=== PATIENT | male | born 1980 | race Caucasian/White ===

== ENCOUNTER 2025-03-08 00:01 | Day surgery (SDC) | payer OTHER, SELFPAY ==
[2025-02-23 10:20] VITALS: BMI 35.9
--- OUTSIDE RECORDS SUMMARY | 2025-03-08 00:04 | XMS_ITS | Patient Health Record ---
Author Organization [facility] Address [address] [place] [address] Support Name Relationship Address Phone Baldemar Vallejo Emergency Contact Unknown [phone] Mikel Vallejo Guarantor Unknown Unavailable Reason For Referral No Information Medications Medication SIG (Take, Route, Frequency, Duration) Notes Start Date End Date Status buPROPion HCl ER (XL) 150 MG Oral 01/13/2019 Active Levothyroxine Sodium 88 MCG TAKE 1 TABLET BY MOUTH DAILY Oral 02/14/2019 Active Montelukast Sodium 10 MG TAKE 1 TABLET B Y MOUTH EVERY EVENING Oral 07/28/2019 Active Conde Carbonate 300 MG Oral 01/04/2019 Active Rosuvastatin Calcium 10 MG 1 TAB(S) ORAL LY ONCE A DAY (AT BEDTIME) Oral 10/24/2019 Active Naltrexone HCl 50 MG Oral 01/13/2019 Active Rexulti 2 mg Oral 01/04/2019 Active Levothyroxine Sodium 100 MCG TAKE 1 TABLET BY MOUTH EVERY DAY Oral 11/21/2019 Active Testosterone Cypionate 200 MG/ML Intramuscular 01/10/2019 Active PARoxetine HCl ER 25 MG Oral 01/13/2019 Active Immunizations Vaccine Route Administration Date Status Comme nts Infuenza, trivalent, recombinant, preservative free IM Intramuscular 03/20/2011 Administered given by mvd Infuenza, trivalent, recombinant, preservative free IM Intramuscular 03/22/2012 Administered ab Infuenza, trivalent, recombinant, preservative free IM Intramuscular 03/24/2013 Administered cc Infuenza, trivalent, recombinant, preservative free IM Intramuscular 04/03/2015 Administered cc Infuenza, trivalent, recombinant, preservative free IM Intramuscular 2017 Administered Infuenza, trivalent, recombinant, preservative free Unknown 01/25/2019 Administered Problems Problem Type SNOMED Code ICD Code Onset Dates Problem Status W/U Status Risk Notes Problem Acquired hypothyroidism (161722259) Other specified acquired hypothyroidism (244.8) Active confirmed Problem Testicular hypofunction (030262277) Testicular hypofunction (E29.1) Active confirmed Problem Vitamin D deficiency (83163454) Vitamin D deficiency, unspecified (E55.9) Active confirmed Problem Bipolar disorder (99601253) Bipolar disorder, unspecified (F31.9) Active confirmed Problem Dysthymia (83591059) Dysthymic disorder (F34.1) Active confirmed Problem Attention deficit hyperactivity disorder, 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, predominantly inattentive type (F90.0) Active confirmed Problem Mild intermittent asthma (929513743) Mild intermittent asthma, uncomplicated (J45.20) Active confirmed Problem Pure hypercholesterolemia (614005121) Pure hypercholesterol emia, unspecified (E78.00) Active confirmed Problem Depression (253902534) Depressio n, unspecified (F32.A) Active confirmed Plan Of Treatment No Information Insurance Providers Payer Name Payer Address Payer Phone Subscriber Number Group Number Insured Name Patient Relationship to Insured Coverage Start Date Coverage End Date DO NOT USE [id number] Mikel Vallejo Self - patient is the insured 9 [facility] [employer] [address] [address] [place] [id number] Mikel Vallejo Self - patient is the insured 4 DO NOT USE [id number] Mikle Vallejo Self - patient is the insured 3 [employer] [address] [place] [address] [id number] Mikel Vallejo Self - patient is the insured 1 Medical (General) History Surgical History Surgery Date(Month/Year) Hernia Repair: at child [email or web address] triple her ros repair; 2012-07-14
--- OUTSIDE RECORDS SUMMARY | 2025-03-08 00:05 | XMS_ITS | Data Portability ---
Author Organization [place] [facility] [employer], Main Office Address [address] [place] [address] Assessment No assessment recorded. Plan of Treatment Reminders Order Date Submit Date Provider Last Modified By Organization Details Last Modified Time Details Appointments None recorded. Lab lipid panel, serum 2022 023 [facility], [address], [place], [address], 14:27:41 TSH, serum or plasma 2022 023 [facility], [address], [place], [address], 3 08:03:10 Referral None recorded. Procedures None recorded. Surgeries None recorded. Imaging None recorded. Medication Orders Medrol (Favian) 4 mg tablets in a dose pack 2022 023 [id number], [address], [place], [address], 3 15:38:41 Zithromax Z-Favian 250 mg tablet 2022 023 FLORES [id number] In [facility], [address], [place], [address], 11:29:01 Patient TargetsNo targets recorded. Patient Instructions Encounter Date Encounter Id Patient Instructions Last Modified By Organization Details Last Modified Time 02/19/2023 [id number] Fu in 4 mo for check up ADHD, asthma, lipid, allergies, thyroid [email or web address] Not available 02/19/2023 10:51:13 Reason for Referral None Reported. Results Created Date Observation Date Name Description Value Unit Range Abnormal Flag Note LastModifiedBy Organization Detail LastModifiedTime 08/30/19 21 08/30/2020 TSH, serum or plasm a TSH 7.87 mIU/L 0.40-4 .50 high Not Available [facility] [address], [place], [address], 08/30/2020 04:10:04 10/04/19 21 10/06/2020 testo stero ne, free + total , serum testosterone , total, MS 164 NG/dL 250-11 00 low Men with clini karissa signi fican t hypog onada l sympt oms and testo stero ne value s repea tedly in the range For addit ional infor matlary nnadya e refer to https ://ed ucati on.FanDistro. Inflection/f aq/FA Q165 (This link is being provi ded for infor matio nal/e ducat ional purpo ses only. ) (Note ) This test was devel oped and its americo tical perfo rmanc e mckenzie cteri stics have been deter mined by [employer] shaunna. It has not been clear ed or appro fei by the FDA. This assay has been valid ated pursu ant to the CLIA regul ation s and is used for clini roman purpo ses. Not Available [facility] [address] [address], [place], [address], 10/06/2020 13:16:04 10/04/1910/06/2020 testo stero ne, free + total , serum testosterone , free 31.2 pg/mL 35.0-1 55.0 low (Note ) This test was devel oped and its americo tical perfo rmanc e mckenzie cteri stics have been deter mined by [employer] shaunna. It has not been clear ed or appro fei by the FDA. This assay has been valid ated pursu ant to the CLIA regul ation s and is used for clini roman purpo ses. [facility] med fusio n [address] [facility] [address] [place] [address] [phone] Elijah iglesias MD Not Available [address], [address], 10/06/2020 13:16:04 10/04/19 21 10/04/2020 TSH, serum or plasm a TSH 2.98 mIU/L 0.40-4 .50 normal Not Available [address], [address], 10/04/2020 07:05:47 10/04/19 21 10/04/2020 hepat ic funct ion panel , serum protein, total 6.6 g/dL 6.1-8. 1 normal Not Available [address], [address], 10/04/2020 07:05:46 10/04/19 21 10/04/2020 hepat ic funct ion panel , serum albumin 4.5 g/dL 3.6-5. 1 normal Not Available [address], [address], 10/04/2020 07:05:46 10/04/19 21 10/04/2020 hepat ic funct ion panel , serum globulin 2.1 g/dL_ (calc ) 1.9-3. 7 normal Not Available [address], [address], 10/04/2020 07:05:46 10/04/19 21 10/04/2020 hepat ic funct ion panel , serum albumin/glob ulin ratio 2.1 (calc ) 1.0-2. 5 normal Not Available [address], [address], 10/04/2020 07:05:46 10/04/19 21 10/04/2020 hepat ic funct ion panel , serum bilirubin, total 0.9 mg/dL 0.2-1. 2 normal Not Available [address], [address], 10/04/2020 07:05:46 10/04/19 21 10/04/2020 hepat ic funct ion panel , serum bilirubin, direct 0.2 mg/dL < or = 0.2 normal Not Available [address], [address], 10/04/2020 07:05:46 10/04/19 21 10/04/2020 hepat ic funct ion panel , serum bilirubin, indirect 0.7 mg/dL _(roman c) 0.2-1. 2 normal Not Available [address], [address], 10/04/2020 07:05:46 10/04/19 21 10/04/2020 hepat ic funct ion panel , serum alkaline phosphatase 49 U/L 36-130 normal Not Available [facility] [address], [address], 10/04/2020 07:05:46 10/04/1910/04/2020 hepat ic funct ion panel , serum AST 21 U/L 10-40 normal Not Available [address], [address], 10/04/2020 07:05:46 10/04/19 21 10/04/2020 hepat ic funct ion panel , serum ALT 23 U/L 9-46 normal Not Available [address], [address], 10/04/2020 07:05:46 10/04/1910/04/2020 lipid panel , serum LDL-choleste rol 81 mg/dL _(roman c) normal Refer ence range : <100 Puja able range <100 mg/dL for prima ry preve ntion ; <70 mg/dL for patie nts with CHD or diabe tic patie nts with > or = 2 CHD risk facto rs. LDL-C is now calcu lated using the [facility] cherylmiracle heck, which is a valid ated novel kathie clifton than the Fried randall breezy ion in the estim ation of LDL-C . Yvette heck SS et al. LYLA. 2013; 310(1 9): 2061- 2068 (http ://ed ucati on.Qu estDi meebee. com/f aq/FA Q164) Not Available [facility] [address] [address] [place], [address], 10/04/2020 07:05:46 10/04/19 21 10/04/2020 lipid panel , serum cholesterol, total 153 mg/dL <200 normal Not Available [address] [address] [place], [address], 10/04/2020 07:05:46 10/04/19 21 10/04/2020 lipid panel , serum HDL cholesterol 51 mg/dL > or = 40 normal Not Available [facility] [address] [address] [place], [address], 10/04/2020 07:05:46 10/04/1910/04/2020 lipid panel , serum triglyceride s 117 mg/dL <150 normal Not Available [facility] [address] [address] [place], [address], 10/04/2020 07:05:46 10/04/1910/04/2020 lipid panel , serum chol/HDLC ratio 3.0 (calc ) <5.0 normal Not Available [facility] [address] [address] [place], [address], 10/04/2020 07:05:46 10/04/1910/04/2020 lipid panel , serum non HDL cholesterol 102 mg/dL _(roman c) <130 normal For patie nts with diabe kaye plus 1 major ASCVD risk facto r, treat ing to a non-H DL-C goal of <100 mg/dL (LDL- C of <70 mg/dL ) is consi dered a thera peuti c optio n. Not Available [facility] [address] [place] [address], [address], 10/04/2020 07:05:46 11/13/19 22 11/14/2021 HEMOG LOBIN A1C hemoglobin A1C 5.7 %_of_ total _HGB <5.7 high For someo ne witho ut known diabe kaye, a hemog lobin A1c value betwe en 5.7% and 6.4% is consi stent with predi abete s and shoul d be confi rmed with a follo w-up test. For someo ne with known diabe kaye, a value <7% indic ates that their diabe kaye is well contr olled . A1c targe ts shoul d be indiv idual ized based on durat ion of diabe kaye, age, comor bid condi tions , and other consi derat ions. This assay resul t is consi stent with an incre ased risk of diabe kaye. Curre ntly, no conse nsus exist s apple ding use of hemog lobin A1c for diagn osis of diabe kaye for child lillie. Not Available [facility] [address] [address] , [place], [address], 11/14/2021 13:56:51 11/13/19 22 11/14/2021 TSH TSH 5.24 mIU/L 0.40-4 .50 high Not Available [facility] [address] [place], [address], 11/14/2021 13:56:50 11/13/19 22 11/14/2021 INSUL IN insulin 16.9 uIU/m L normal Refer ence Range < or = 19.6 Risk: Optim al < or = 19.6 Moder ate NA High >19.6 Adult cardi ovasc ular event risk categ ory cut point s (opti mal, moder ate, high) are based on [facility] s popul ation data from 04/22 11. This insul in assay shows stron g cross -reac tivit y for some insul in analo gs (lisp ro, aspar t, and glarg ine) and much lower cross -reac tivit y with other s (dete paty, gluli sine) . Not Available [address] [address] [place], [address], 11/14/2021 13:56:49 11/13/19 22 11/14/2021 HEPAT ITIS B SURFA CE ANTIB KENDRA QL hepatitis B surface antibody ql non-re active non-re active normal Not Available [facility] [address], [address], 11/14/2021 13:56:49 11/13/19 22 11/14/2021 CBC (INCL UDES DIFF/ PLT) hematocrit 49.4 % 38.5-5 0.0 normal Not Available [address], [address], 11/14/2021 13:56:48 11/13/19 22 11/14/2021 CBC (INCL UDES DIFF/ PLT) white blood cell count 6.4 thous and/u L 3.8-10 .8 normal Not Available [address], [address], 11/14/2021 13:56:48 11/13/19 22 11/14/2021 CBC (INCL UDES DIFF/ PLT) red blood cell count 5.59 shashank on/uL 4.20-5 .80 normal Not Available [facility] [address] [address] [place], [address], 11/14/2021 13:56:48 11/13/19 22 11/14/2021 CBC (INCL UDES DIFF/ PLT) hemoglobin 16.3 g/dL 13.2-1 7.1 normal Not Available [facility] [address], [address], 11/14/2021 13:56:48 11/13/19 22 11/14/2021 CBC (INCL UDES DIFF/ PLT) MCV 88.4 fL 80.0-1 00.0 normal Not Available [address], [address], 11/14/2021 13:56:48 11/13/19 22 11/14/2021 CBC (INCL UDES DIFF/ PLT) MCH 29.2 pg 27.0-3 3.0 normal Not Available [address], [address], 11/14/2021 13:56:48 11/13/19 22 11/14/2021 CBC (INCL UDES DIFF/ PLT) MCHC 33.0 g/dL 32.0-3 6.0 normal Not Available [address], [address], 11/14/2021 13:56:48 11/13/19 22 11/14/2021 CBC (INCL UDES DIFF/ PLT) RDW 16.5 % 11.0-1 5.0 high Not Available [address], [address], 11/14/2021 13:56:48 11/13/19 22 11/14/2021 CBC (INCL UDES DIFF/ PLT) platelet count 214 thous and/u L 140-40 0 normal Not Available [address], [address], 11/14/2021 13:56:48 11/13/19 22 11/14/2021 CBC (INCL UDES DIFF/ PLT) MPV 11.6 fL 7.5-12 .5 normal Not Available [address], [address], 11/14/2021 13:56:48 11/13/19 22 11/14/2021 CBC (INCL UDES DIFF/ PLT) absolute neutrophils 3130 cells /uL 1500-7 800 normal Not Available [address], [address], 11/14/2021 13:56:48 11/13/19 22 11/14/2021 CBC (INCL UDES DIFF/ PLT) absolute lymphocytes 2573 cells /uL 850-39 00 normal Not Available [address], [address], 11/14/2021 13:56:48 11/13/19 22 11/14/2021 CBC (INCL UDES DIFF/ PLT) absolute monocytes 570 cells /uL 200-95 0 normal Not Available [address], [address], 11/14/2021 13:56:48 11/13/19 22 11/14/2021 CBC (INCL UDES DIFF/ PLT) absolute eosinophils 90 cells /uL 15-500 normal Not Available [address], [address], 11/14/2021 13:56:48 11/13/19 22 11/14/2021 CBC (INCL UDES DIFF/ PLT) absolute basophils 38 cells /uL 0-200 normal Not Available [address], [address], 11/14/2021 13:56:48 11/13/19 22 11/14/2021 CBC (INCL UDES DIFF/ PLT) neutrophils 48.9 % normal Not Available [address], [address], 11/14/2021 13:56:48 11/13/19 22 11/14/2021 CBC (INCL UDES DIFF/ PLT) lymphocytes 40.2 % normal Not Available [address], [address], 11/14/2021 13:56:48 11/13/19 22 11/14/2021 CBC (INCL UDES DIFF/ PLT) monocytes 8.9 % normal Not Available [address], [address], 11/14/2021 13:56:48 11/13/19 22 11/14/2021 CBC (INCL UDES DIFF/ PLT) eosinophils 1.4 % normal Not Available [address], [address], 11/14/2021 13:56:48 11/13/19 22 11/14/2021 CBC (INCL UDES DIFF/ PLT) basophils 0.6 % normal Not Available [address], [address], 11/14/2021 13:56:48 11/13/19 22 11/14/2021 HEPAT IC FUNCT ION PANEL protein, total 7.2 g/dL 6.1-8. 1 normal Not Available [address], [address], 11/14/2021 13:56:47 11/13/19 22 11/14/2021 HEPAT IC FUNCT ION PANEL albumin 4.5 g/dL 3.6-5. 1 normal Not Available [address], [address], 11/14/2021 13:56:47 11/13/19 22 11/14/2021 HEPAT IC FUNCT ION PANEL globulin 2.7 g/dL_ (calc ) 1.9-3. 7 normal Not Available [address], [address], 11/14/2021 13:56:47 11/13/19 22 11/14/2021 HEPAT IC FUNCT ION PANEL albumin/glob ulin ratio 1.7 (calc ) 1.0-2. 5 normal Not Available [address], [address], 11/14/2021 13:56:47 11/13/19 22 11/14/2021 HEPAT IC FUNCT ION PANEL bilirubin, total 1.1 mg/dL 0.2-1. 2 normal Not Available [address], [address], 11/14/2021 13:56:47 11/13/19 22 11/14/2021 HEPAT IC FUNCT ION PANEL bilirubin, direct 0.2 mg/dL < or = 0.2 normal Not Available [address] [address] [place], [address], 11/14/2021 13:56:47 11/13/19 22 11/14/2021 HEPAT IC FUNCT ION PANEL bilirubin, indirect 0.9 mg/dL _(roman c) 0.2-1. 2 normal Not Available [address] [address] [place], [address], 11/14/2021 13:56:47 11/13/19 22 11/14/2021 HEPAT IC FUNCT ION PANEL alkaline phosphatase 55 U/L 36-130 normal Not Available [facility] [address] [address] [place], [address], 11/14/2021 13:56:47 11/13/19 22 11/14/2021 HEPAT IC FUNCT ION PANEL AST 25 U/L 10-40 normal Not Available [address] [address] [place], [address], 11/14/2021 13:56:47 11/13/19 22 11/14/2021 HEPAT IC FUNCT ION PANEL ALT 35 U/L 9-46 normal Not Available [address] [address] [place], [address], 11/14/2021 13:56:47 11/13/19 22 11/14/2021 BASIC METAB OLIC PANEL urea nitrogen (BUN) 21 mg/dL 7-25 normal Not Available [address], [address], 11/14/2021 13:56:47 11/13/19 22 11/14/2021 BASIC METAB OLIC PANEL glucose 98 mg/dL 65-99 normal Fasti ng refer ence inter shannon Not Available [address], [address], 11/14/2021 13:56:47 11/13/19 22 11/14/2021 BASIC METAB OLIC PANEL creatinine 0.89 mg/dL 0.60-1 .29 normal Not Available [address], [address], 11/14/2021 13:56:47 11/13/19 22 11/14/2021 BASIC METAB OLIC PANEL eGFR 110 mL/mi n/1.7 3m2 > or = 60 normal The eGFR is based on the CKD-E PI 2020 equat ion. To calcu late the new eGFR from a previ ous Creat inine or Cysta tin C resul t, go to https ://mariel khan.teressa carvajal.o kody/munir pearson s/ kdoqi /gfr% 5Fcal culat or Not Available [address], [address], 11/14/2021 13:56:47 11/13/19 22 11/14/2021 BASIC METAB OLIC PANEL BUN/creatini ne ratio not applic able (calc ) 6-22 Not Available [address], [address], 11/14/2021 13:56:47 11/13/19 22 11/14/2021 BASIC METAB OLIC PANEL sodium 142 mmol/ L 135-14 6 normal Not Available [address], [address], 11/14/2021 13:56:47 11/13/19 22 11/14/2021 BASIC METAB OLIC PANEL potassium 5.1 mmol/ L 3.5-5. 3 normal Not Available [address] [place], [address], 11/14/2021 13:56:47 11/13/19 22 11/14/2021 BASIC METAB OLIC PANEL chloride 106 mmol/ L 98-110 normal Not Available [facility] [address] [address] [address] , [place], [address], 11/14/2021 13:56:47 11/13/19 22 11/14/2021 BASIC METAB OLIC PANEL carbon dioxide 28 mmol/ L 20-32 normal Not Available [facility] [address] [address] [address] , [place], [address], 11/14/2021 13:56:47 11/13/19 22 11/14/2021 BASIC METAB OLIC PANEL calcium 9.6 mg/dL 8.6-10 .3 normal Not Available [facility] [address] [address] [facility] [place], [address], 11/14/2021 13:56:47 11/13/19 22 11/14/2021 HIV 1/2 ANTIG EN/AN TIBOD Y,FOU RTH GENER ATION W/RFL HIV Ag/Ab, 4TH gen non-re active non-re active normal HIV-1 antig en and HIV-1 /HIV- 2 antib odies were not detec eli. There is no labor atory evide nce of HIV infec tion. PLEAS E NOTE: This infor matio n has been discl osed to you from recor ds whose confi denti ality may be prote cted by state law. If your state requi res such prote ction , then the state law prohi bits you from kyra torre furth er discl osure of the infor matio n witho ut the speci fic writt en conse nt of the perso n to whom it perta ins, or as other tolentino permi tted by law. A gener al autho rizat ion for the relea se of medic al or other infor matio n is NOT suffi cient for this purpo se. For addit ional infor matio n pleas e refer to http: //[facility] catio n.que stdia gnost ics.c om/fa q/FAQ 106 (This link is being provi ded for infor jeb nal/ educa lauren l purpo ses only. ) The perfo rmanc e of this assay has not been clini karissa valid ated in patie nts less than 2 years old. Not Available [facility] [address], [address], 11/14/2021 13:56:46 11/13/19 22 11/14/2021 LIPID PANEL , STAND SHAWNA cholesterol, total 207 mg/dL <200 high Not Available [facility] [address], [address], 11/14/2021 13:56:45 11/13/19 22 11/14/2021 LIPID PANEL , STAND SHAWNA HDL cholesterol 50 mg/dL > or = 40 normal Not Available [facility] [address], [address], 11/14/2021 13:56:45 11/13/19 22 11/14/2021 LIPID PANEL , STAND SHAWNA triglyceride s 150 mg/dL <150 high Not Available [facility] [address], [address], 11/14/2021 13:56:45 11/13/19 22 11/14/2021 LIPID PANEL , [place]AND [place] LDL-choleste rol 131 mg/dL _(roman c) high Refer ence range : <100 Puja able range <100 mg/dL for prima ry preve ntion ; <70 mg/dL for patie nts with CHD or diabe tic patie nts with > or = 2 CHD risk facto rs. LDL-C is now calcu lated using the Yvette n-Hop kins calcu meggan n, which is a valid ated novel metho d provi kaelyn quispe r accur acy than the Fried randall equat ion in the estim ation of LDL-C . Yvette heck SS et al. LYLA. 2013; 310(1 9): 2061- 2068 (http ://ed ucati on.Qu estDi agnos [employer]. com/f aq/FA Q164) Not Available [facility] [address] [address], [place], [address], 11/14/2021 13:56:45 11/13/19 22 11/14/2021 LIPID PANEL , STAND [place]AWNA chol/HDLC ratio 4.1 (calc ) <5.0 normal Not Available [facility] [address] [address], [place], [address], 11/14/2021 13:56:45 11/13/19 22 11/14/2021 LIPID PANEL , STAND [place]AWNA non HDL cholesterol 157 mg/dL _(roman c) <130 high For patie nts with diabe kaye plus 1 major ASCVD risk facto r, treat ing to a non-H DL-C goal of <100 mg/dL (LDL- C of <70 mg/dL ) is consi enuice a woodya marjorie agarwalo n. Not Available [facility] [address] [address], [place], [address], 11/14/2021 13:56:45 Result Notes None recorded. Problems Name Problem SNOMED Code Status Onset Date Resolution Date Notes Provider Name and Address Organization Details Recorded Time Hypercholeste rolemia 65058491 Active 2020 Not Available [facility] 3 02:52:29 Asthma 091669959 Active 2020 Not Available [facility] 3 02:52:29 Mixed anxiety and depressive disorder 886371006 Active 2020 Not Available [facility] 3 02:52:29 Attention deficit hyperactivity disorder 331814297 Active 2020 Not Available [facility] 3 02:52:29 Hypothyroidis m 99845448 Active 2020 Not Available [facility] 3 02:52:29 Hyperlipidemi a 25704931 Active 2020 Not Available [facility] 3 02:52:29 Hypogonadism 78861130 Active 08/09/ 2021 Not Available [facility] 3 02:52:29 Obese 074944791 Active 2022 Aurora Anand NP [address] [facility], [address] [address], [place], [address] , [employer] [facility] [employer] [facility] 3 10:02:21 Anxiety 07945300 Active 2022 Aurora Anand NP [address] [facility], [address] [address], [place], [address] , [employer] [facility] 3 10:46:15 Seasonal allergic rhinitis 510452420 Active 2022 Aurora Anand NP [address] [facility], [address] [place] [address], [place], [address] , [email or web address] [facility] 3 10:46:30 Acute sinusitis 57515572 Active 2022 Aurora Anand NP [address] [facility], [address] [address], [place], [address] , [email or web address] [facility] 3 11:20:38 Problem Notes None recorded. Medical Equipment None Reported. Allergies Allergen ID Allergen Name Allergen Category Reaction Reaction Severity Criticality Documentation Date Start Date Code Code System Note Provider Name and Address Organization Details Recorded Time 5024 Cipro medicatio n itching Not available Not available 07/02/202239235 3 RxNorm Not Available [facility] 3 03:06:06 Medications Name Sig Start Date Stop Date Status Note LastModified by Organization Details LastModified Time atorvastati n 10 mg tablet TAKE 1 TABLET DAILY AT BEDTIME active Not Available Not Available No t Available azithromyci n 250 mg tablet TAKE 2 TABLETS (500 MG) BY ORAL ROUTE ONCE DAILY FOR 1 DAY THEN 1 TABLET (250 MG) BY ORAL ROUTE ONCE DAILY FOR 4 DAYS active Not Available Not Available No t Available Synthroid 125 mcg tablet TAKE 1 TABLET DAILY (DISCONTI NUE PREVIOUS DOSE) active Not Available Not Available No t Available dextroamphe tamine-amph etamine 10 mg tablet TAKE 1 TABLET BY MOUTH EARLY AFTERNOON DAILY NEEDED active Not Available Not Available No t Available Adderall XR 20 mg capsule,ext ended release Take 1 capsule every day by oral route. 07/16 completed Not Available Not Available Not Available levothyroxi ne 25 mcg tablet TAKE 1 TABLET BY MOUTH EVERY DAY active Not Available Not Available No t Available levothyroxi ne 100 mcg tablet Take 1 tablet every day by oral route. 11/28 completed Not Available Not Available Not Available lithium carbonate 300 mg capsule 1 CAP(S) ORALLY ONCE A DAY (IN THE MORNING), 3 CAP(S) ORALLY ONCE A DAY (AT BEDTIME) 07/26 completed Not Available Not Available Not Available levothyroxi ne 50 mcg tablet TAKE 1 TABLET BY MOUTH EVERY DAY 11/14 completed Not Available Not Available Not Available dextroamphe tamine-amph etamine 20 mg tablet Take 1 tablet every day by oral route. active Not Available Not Available No t Available Advair Diskus 250 mcg-50 mcg/dose powder for inhalation Inhale 1 puff twice a day by inhalatio n route. active Not Available Not Available No t Available Synthroid 75 mcg tablet Take 1 tablet(s) every day by oral route for 90 days. 06/23 completed Not Available Not Available Not Available sertraline 25 mg tablet Take 1 tablet every day by oral route for 30 days. 10/02 completed Not Available Not Available Not Available montelukast 10 mg tablet TAKE 1 TABLET DAILY AT BEDTIME active Not Available Not Available No t Available Synthroid 112 mcg tablet Take 1 tablet every day by oral route. active Not Available Not Available No t Available methylpredn isolone 4 mg tablets in a dose pack 1 tab po daily active Not Available Not Available No t Available albuterol sulfate HFA 90 mcg/actuati on aerosol inhaler INHALE 2 PUFFS BY MOUTH EVERY 4 HOURS NEEDED active Not Available Not Available No t Available Vitamin D2 1,250 mcg (50,000 unit) capsule TAKE 1 CAPSULE (50,000 UNIT) BY ORAL ROUTE ONCE WEEKLY FOR 90 DAYS 07/26 completed Not Available Not Available Not Available ondansetron 4 mg disintegrat ing tablet TAKE 1 TABLET BY MOUTH EVERY 6 HOURS NEEDED active Not Available Not Available No t Available sertraline 50 mg tablet TAKE 1 TABLET DAILY active Not Available Not Available No t Available rosuvastati n 10 mg tablet 1 TAB(S) ORALLY ONCE A DAY (AT BEDTIME) 07/26 completed Not Available Not Available Not Available levalbutero l HFA 45 mcg/actuati on aerosol inhaler active Not Available Not Available Not Available Vyvanse 20 mg capsule Take 1 capsule every day by oral route. 11/04 completed Not Available Not Available Not Available levothyroxi ne 50 mcg capsule Take 1 po daily 11/12 completed Not Available Not Available Not Available Saxenda 3 mg/0.5 mL (18 mg/3 mL) subcutaneou s pen injector 10/10 completed Not Available Not Available Not Available Rexulti 2 mg tablet 07/26 completed Not Available Not Available Not Available Descovy 200 mg-25 mg tablet TAKE 1 TABLET BY MOUTH EVERY DAY FOR 30 DAYS active Not Available Not Available No t Available Xyosted 100 mg/0.5 mL subcutaneou s auto-inject or INJECT 100 MG SUBCUTANE OUSLY ONCE A WEEK 06/20 completed Not Available Not Available Not Available albuterol sulf 90 mcg/actuati on breath activated powder inhaler,sen sor 11/12 completed Not Available Not Available Not Available Wegovy 2.4 mg/0.75 mL subcutaneou s pen injector Inject 2.4 mg every week by subcutane ous route for 90 days. active Not Available Not Available No t Available Wegovy 1.7 mg/0.75 mL subcutaneou s pen injector Inject 1.7 mg every week by subcutane ous route. 11/04 completed Not Available Not Available Not Available Wegovy 1 mg/0.5 mL subcutaneou s pen injector Inject 1 mg every week by subcutane ous route. 11/04 completed Not Available Not Available Not Available Wegovy 0.25 mg/0.5 mL subcutaneou s pen injector Inject by subcutane ous route for 28 days. 07/16 completed Not Available Not Available Not Available Wegovy 0.5 mg/0.5 mL subcutaneou s pen injector Inject by subcutane ous route for 28 days. active Not Available Not Available No t Available sertraline 200 mg capsule 07/12 /2022 completed Not Available Not Available Not Available Vitals Date Recorded Body mass index (BMI) Body height Oxygen saturation Oxygen saturation in Arterial blood by Pulse oximetry Heart rate Respiratory rate Body temperature Body weight Systolic And Diastolic Provider Name and Address Organization Details Last Updated DateTime 3 38.5 kg/m2 177.8 cm 93 % 93 % 88 /min 16 /min 96.7 [degF] 613978. 76 g 132/81 mm[Hg] Not Available [facility] 3 02:48:24 Date Recorded Oxygen saturation Oxygen saturation in Arterial blood by Pulse oximetry Heart rate Body temperature Body weight Systolic And Diastolic Provider Name and Address Organization Details Last Updated DateTime 1 97 % 97 % 61 /min 97.5 [degF] 701065. 46 g 120/78 mm[Hg] Not Available [facility] 3 02:48:24 Date Recorded Oxygen saturation Oxygen saturation in Arterial blood by Pulse oximetry Heart rate Body temperature Body weight Systolic And Diastolic Provider Name and Address Organization Details Last Updated DateTime 1 96 % 96 % 78 /min 97.6 [degF] 558536. 09 g 124/78 mm[Hg] Not Available [facility] 3 02:48:24 Date Recorded Oxygen saturation Oxygen saturation in Arterial blood by Pulse oximetry Heart rate Body temperature Body weight Systolic And Diastolic Provider Name and Address Organization Details Last Updated DateTime 2 98 % 98 % 100 /min 96.9 [degF] 700990. 75 g 130/90 mm[Hg] Not Available [facility] 3 02:48:24 Date Recorded Body height Body mass index (BMI) Body weight Body temperature Heart rate Respiratory rate Oxygen saturation Oxygen saturation in Arterial blood by Pulse oximetry Pain severity - 0-10 verbal numeric rating [Score] - Reported Systolic And Diastolic Provider Name and Address Organization Details Last Updated DateTime 3 177.8 cm 34.7 kg/m2 376854. 05 g 96.8 [degF] 61 /min 16 /min 96 % 96 % 0 100/70 mm[Hg] Aurora Leos RN [place] - [facility] 3 11:15:06 Social History Question Answer Notes LastModified by Organizat ion Details LastModified Time Tobacco Smoking Status Never Smoker Not Available [facility] 07/02/2022 02:35:50 Do You Have An Advance Directive? Yes [id number] Information not available 07/02/2022 What Is Your Level Of Caffeine Consumption? Occasional [id number] [id number] Information not available 07/02/2022 What Is Your Code Status? Full Code [id number] Information not available 07/02/2022 In The 14 Days Before Symptom Onset, Have You Had Close Contact With A Laboratory-confi rmed COVID-19 While That Case Was Ill? No [id number].[id number] Information not available 07/02/2022 In The 14 Days Before Symptom Onset, Have You Had Close Contact With A Person Who Is Under Investigation For COVID-19 While That Person Was Ill? No [id number].31164 [id number] Information not available 07/02/2022 What Type Of Diet Are You Following? REGULAR MIGRATION.21249 49205 Information not available 07/02/2022 What Is The Highest Grade Or Level Of School You Have Completed Or The Highest Degree You Have Received? [id number] MIGRATION.70043 43319 Information not available 07/02/2022 How Many Days Of Moderate To Strenuous Exercise, Like A Brisk Walk, Did You Do In The Last 7 Days? 2 Information not available 02/19/2023 On Those Days That You Engage In Moderate To Strenuous Exercise, How Many Minutes, On Average, Do You Exercise? 60 Information not available 02/19/2023 Have There Been Any Changes To Your Family Or Social Situation? No Information not available 02/19/2023 Are There Any Guns Present In Your Home? Yes [id number].98142 [id number] Information not available 07/02/2022 Where Do You Live? [facility] MIGRATION.[id number] Information not available 07/02/2022 Do You Have A Medical Power Of Bottoming Machine Operator? Yes [id number].47965 44775 Information not available 07/02/2022 How Many Children Do You Have? 0 MIGRATION.92440 58575 Information not available 07/02/2022 Do You Have Any Pets? Yes MIGRATION.17886 14042 Information not available 07/02/2022 What Is Your Relationship Status? MIGRATION.71709 32313 Information not available 07/02/2022 Do You Use Your Seat Belt Or Car Seat Routinely? Yes Information not available 02/19/2023 Do You Have Smoke And Carbon Monoxide Detectors In Your Home? Yes [id number].47338 94105 Information not available 07/02/2022 Are There Any Smokers In Your House? No MIGRATION.64795 97888 Information not available 07/02/2022 Do You Participate In Social Media? Yes Information not available 02/19/2023 What Types Of Sporting Activities Do You Participate In? Weight Lifting , Cardio Information not available 02/19/2023 Do You Use Sunscreen Routinely? Yes MIGRATION.68286 03141 Information not available 07/02/2022 Have You Recently Traveled Abroad? No MIGRATION.03030 04304 Information not available 07/02/2022 Do You Have Any Dietary Restrictions? No MIGRATION.56772 32425 Information not available 07/02/2022 Sex: Unknown Functional Status Question Answer Note LastModified by Organizat ion Details LastModified Time Do you use any illicit or recreational drugs? No [id number] Information not available 07/02/2022 What is your level of alcohol consumption? 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 Occasional [id number].[id number] 026 Information not available 07/02/2022 Mental Status Question Answer Note LastModified by Organization D etails LastModified Time Do you feel stressed (tense, restless, nervous, or anxious, or unable to sleep at night)? [id number] Information not available 02/19/2023 Family History Relationship Description Onset Age of this Age Resolved Age Notes LastModified by Organization Details LastModified Time Father No current problems or disability [id number] Not available 07/02/2022 02:40:16 Mother No current problems or disability [id number] Not available 07/02/2022 02:40:16 Mother Malignant neoplasm of breast [id number].230 [id number] Not available 07/02/2022 02:40:16 Maternal Grandmother Malignant neoplasm of colon MIGRATION.599 [id number] Not available 07/02/2022 02:40:16 Medical History Condition Response ADD/ADHD Y ANXIETY DISORDER Y DEPRESSION (INCLUDING POST ) Y HYPOTHYROIDISM Y HIGH CHOLESTEROL / HYPERLIPIDEMIA Y Immunizations Vaccine Type Date Status Note Provider Nam e and Address Organization Details Recorded Time SARS-COV-2 (COVID-19) vaccine, UNSPECIFIED 3 completed Aurora Anand NP [address], [place], [address], [place] - [employer] 02/19/2023 11:19:38 influenza nasal, unspecified formulation 3 completed Aurora Anand NP [address], [place], [address], [employer] - [employer] 02/19/2023 11:19:46 COVID-19, mRNA, LNP-S, PF, 100 mcg/0.5mL dose or 50 mcg/0.25mL dose 1 completed Not Available [facility] 07/02/2022 03:05:46 COVID-19, mRNA, LNP-S, PF, 100 mcg/0.5mL dose or 50 mcg/0.25mL dose 1 completed Not Available [facility] 07/02/2022 03:05:46 Past Encounters Encounter ID Performer Location Encounter Start Date Encounter Closed Date Diagnosis/Indication Diagnosis SNOMED-CT Code Diagnosis ICD10 Code Diagnosis IMO Codes Diagnosis Note [id number] [facility] [address] [place] [address] 07/26/2020 00:00:00 07/26/2020 21:28:49 [id number] [facility] [address] [place] [address] 08/28/2020 00:00:00 08/28/2020 16:58:37 [id number] [facility] [address] [place] [address] 10/02/2020 00:00:00 10/02/2020 15:50:03 [id number] Eduardo Smith MD [facility] [address] [place] [address] 11/12/2021 00:00:00 11/12/2021 10:07:18 [id number] José Miguel Mcdermott MD [address] [address] 06/20/2022 00:00:00 06/23/2022 11:16:21 [id number] Aurora Anand NP [address] [address] 02/19/2023 11:06:36 02/19/2023 12:54:32 Attention deficit hyperactivity disorder 320549093 F90.9 Adderall out of stock, change to vyvanse 20 mg po daily. 08/05/22 adderall 10 mg po daily sent. 3 pt called asking for vyvanse 20 mg po daily o [facility].11/04/22 vyvanse too expensive, ER form out of stock. Adderall IR 20 mg sent to [facility] in [facility]. 3 pt scheduled appt in 1 week. Refilled 20 mg and will add 10 mg for prn use. Asthma 225146577 J45.90 9 Advair 250/50 inh bid. Rinse mouth after use.Levalb uterol HFA 45 mcg/actuat ion Hyperlipidemia 74047046 E78.5 Atorvastat in 10 mg po nightly. Hypogonadism 88871499 E2 9.1 Hypothyroidism 30153897 E03.9 Levothyrox ine 112 mcg po daily. HIV risk lifestyle 74431 4005 Z72.89 Descovy 200mg-25 mg po daily. Obese 957199137 E66.9 wegovy 1 mg sent 08/05/22 with 1.7 mg dose. 3 Wegovy 2.4 mg dose [facility] 1 [facility] Anxiety 43571102 F41.9 Sertraline 50 mg po daily. Seasonal a llergic rhinitis 564868710 J30.2 Montelukas t 10 mg po daily. Acute sinusitis 15185837 J01.90 Medrol dose favian. Zpak. Health Concerns Section Related Observation LastModified by Organization Detai ls LastModified Time None Recorded Concern Status LastModified by Organization Details LastModified Time None Recorded Advance Directives Directive Y: Payers Insurance Date Sequence Insurance Name Policy Number Policy [place] Covered Member ID [place] Member ID Guarantor Name 02/16/2023 1 [facility] [id number] Mikel Vallejo [id number] Mikel Vallejo Notes Date Note Type Note Provider Name and Address Organization Details Recorded Time 02/19/2023 text/html Here for follow up 8 mo.First and only visit was 06/20/22. Lipid- trying to eat wellAsthma- using inhaler 2 times weekly. Has been on maintenence inhaler.ADHD- stable. Would like Adderall ER but can't find it. Vyvanse did not work, but aware it could've been the dose.Hypothyroidis m- Taking meds routinely.HIV risk lifestyle- Homosexual relationship.Obese - wegovy working well. Still on insurance coverage.Anxiety- Stable. flares on occasion. Situational.Allerg ic rhinitis- Stable. Has been back and forth to [place]. Has been wheezing more than normal. Using disc routinely. Aurora Anand NP [address] [facility] [facility] [address], [place], [address], [place] - [facility] [facility] [employer] 02/19/2023 12:42:28
[2025-03-08 06:16] VITALS: BMI 37.6
[2025-03-08 06:19] VITALS: BP 117/58; PULSE 66; RESP 18; TEMP 36.4; O2SAT 98
[2025-03-08] MEDS: LACTATED RINGERS 1,000 ML 150 ML IV CONT (06:20)
--- NOTE | 2025-03-08 06:48 | P.PNAN_ITS ---
Anes - Initial Pre Proc Eval Procedure: Operation Date: 03/08/25 07:30 Proposed Procedures p Screening Colonoscopy - Satish Thompson MD Date/Time: 03/08/25 06:48 Surgeon: Satish Thompson MD Pre Op Diagnosis: Screening Patient Data Age: 44 Gender: M Height: 1.78 m Weight: 119.1 kg Last Vital Signs Temp 36.4 C L 03/08/25 06:19 Pulse 66 03/08/25 06:19 Resp 18 03/08/25 06:19 BP 117/58 L 03/08/25 06:19 Pulse Ox 98 03/08/25 06:19 O2 Del Method Room Air 03/08/25 06:19 Allergies Allergy/AdvReac Type Severity Reaction Status Date / Time ciprofloxacin (From Cipro) AdvReac Mild Unknown Verified 03/08/25 06:13 Home Medications ?Medication ?Instructions ?Recorded ?Confirmed ?Type albuterol 90 mcg-budesonide 80 2 inh inhalation ONCE # 32.1 grams 05/05/24 02/23/25 Rx mcg/actuation HFA aerosol inhaler (Airsupra) montelukast 10 mg tablet 10 mg PO DAILY #90 tabs 06/2803/08/25 Rx atorvastatin 10 mg tablet 10 mg PO DAILY #90 tabs /03/08/25 Rx emtricitabine 200 mg-tenofovir 1 tablet PO DAILY #90 t abs 08/31/24 03/08/25 Rx alafenamide fumarate 25 mg tablet (Descovy) levothyroxine 125 mcg tablet 125 mcg PO DAILY #90 tabs 11/15/24 03/08/25 Rx (Synthroid) sertraline 50 mg tablet 50 mg PO DAILY #90 tabs 10/2603/08/25 Rx dextroamphetamine-amphetamine 10 10 mg PO DAILY #30 ta bs 02/21/25 03/08/25 Rx mg tablet (Adderall) dextroamphetamine-amphetamine ER 20 mg PO DAILY #30 ca ps 02/21/25 03/08/25 Rx 20 mg 24hr capsule,extend release (Adderall XR) semaglutide (weight loss) 2.4 2.4 mg (0.75 mL) subcut WEEKLY #6 02/21/25 03/08/25 Rx mg/0.75 mL subcutaneous pen mL injector (Nando) Patient hx anesthesia problems: none Family hx anesthesia problems: none Results Review: All pre-operative results and documents have been reviewed as part of the pre- operative evaluation. [facility] Past Medical History Medical History (Updated 06/09/24 @ 12:55 by Aurora Anand APRN) Hypothyroidism Asthma Anxiety Allergies COPD (chronic obstructive pulmonary disease) Surgical History Surgical History (Updated 10/06/23 @ 08:[address] [facility]) No history of previous surgery Family History Family History (Updated 10/06/23 @ 09:02 by Fara Palacio CMA) Mother Asthma Depression Thyroid disorder Breast cancer Grandparent Depression Carcinoma of colon Social History Social History (Updated 08/30/24 @ 13:59 by Virgil Taylor) Social History: 08/24/24 very confident with medical forms Smoking status: Never smoker Alcohol intake: unknown Substance use: never Substance use type: does not use Do You Feel Safe in your Home?: Yes Lack of Transportation: No Lack of Food: Never True Current Housing: I Have Housing Concerned About Future Housing: No Difficulty Paying Gas/Electric Bills: No Difficulty Paying for Meds: No Currently Unemployed: No Education: Associate Degree Difficulty w/ Childcare or Family Care: No Living arrangements: alone Occupation/Education: occupation Additional occupation/education comments: Progress Worker at [employer] concerns: No Agree to blood products: Yes Anes - Eval Final PreProcedure Day of Procedure 03/08/25 06:48 Patient weight: obese Heart: regular rate and rhythm Lungs: clear to auscultation Airway: Mallampati scale class II Neurological: alert and oriented Last oral intake: >/= 8 hours ASA classification: III Emergent: no Anesthetic plan: proceed Anesthesia type and monitoring: general GIVS and standard monitoring Results Review: All pre-operative results and documents have been reviewed as part of the pre- operative evaluation. Informed Consent: The patient's anesthetic plan and its attendant risks and benefits were discussed with the patient/family/POA. Questions were solicited and answers provided to the satisfaction of the patient/family/POA.
--- NOTE | 2025-03-08 07:29 | PM.IMHP ---
H&P: HPI History of Present Illness Date/Time: 03/08/25 07:29 Chief Complaint: Screening colonoscopy Narrative: This is the patient's first colonoscopy. There are no GI symptoms and there is no family history of colorectal cancer. Review of Systems Review of Systems: All systems reviewed & are unremarkable except as noted in HPI and below PMFSH Past Medical History Medical History (Updated 03/08/25 @ 07:30 by Satish Thompson MD) Hypothyroidism Asthma Anxiety Allergies COPD (chronic obstructive pulmonary disease) Surgical History Surgical History (Updated 10/06/23 @ 08:48 by Fara Palacio CMA) No history of previous surgery Family History Family History (Updated 10/06/23 @ 09:02 by Fara Palacio CMA) Mother Asthma Depression Thyroid disorder Breast cancer Grandparent Depression Carcinoma of colon Social History Social History (Updated 08/30/24 @ 13:59 by Virgil Taylor) Social History: 08/24/24 very confident with medical forms Smoking status: Never smoker Alcohol intake: unknown Substance use: never Substance use type: does not use Do You Feel Safe in your Home?: Yes Lack of Transportation: No Lack of Food: Never True Current Housing: I Have Housing Concerned About Future Housing: No Difficulty Paying Gas/Electric Bills: No Difficulty Paying for Meds: No Currently Unemployed: No Education: Associate Degree Difficulty w/ Childcare or Family Care: No Living arrangements: alone Occupation/Education: occupation Additional occupation/education comments: Branch Assistant at [employer] concerns: No Agree to blood products: Yes Meds Home Medications and Allergies Home Medications ?Medication ?Instructions ?Recorded ?Confirmed ?Type albuterol 90 mcg-budesonide 80 2 inh inhalation ONCE #32.1 grams 05/05/24 02/23/25 Rx mcg/actuation HFA aerosol inhaler (Airsupra) montelukast 10 mg tablet 10 mg PO DAILY #90 tabs 05/05/24 03/08/25 Rx atorvastatin 10 mg tablet 10 mg PO DAILY #90 tabs 08/31/24 03/08/25 Rx emtricitabine 200 mg-tenofovir 1 tablet PO DAILY #90 tabs 08/31/24 03/08/25 Rx alafenamide fumarate 25 mg tablet (Descovy) levothyroxine 125 mcg tablet 125 mcg PO DAILY #90 tabs 11/15/24 03/08/25 Rx (Synthroid) sertraline 50 mg tablet 50 mg PO DAILY #90 tabs 12/07/24 03/08/25 Rx dextroamphetamine-amphetamine 10 10 mg PO DAILY #30 tabs 02/21/25 03/08/25 Rx mg tablet (Adderall) dextroamphetamine-amphetamine ER 20 mg PO DAILY #30 caps 02/21/25 03/08/25 Rx 20 mg 24hr capsule,extend release (Adderall XR) semaglutide (weight loss) 2.4 2.4 mg (0.75 mL) subcut WEEKLY #6 02/21/25 03/08/25 Rx mg/0.75 mL subcutaneous pen mL injector ([employer]) Allergies Allergy/AdvReac Type Severity Reaction Status Date / Time ciprofloxacin (From Cipro) AdvReac Mild Unknown Verified 03/08/25 06:13 Vital Signs Vital Signs - 24 hr 03/08/25 06:19 Temperature 97.5 F L Pulse Rate 66 Respiratory Rate 18 Blood Pressure 117/58 L Pulse Oximetry 98 Oxygen Delivery Room Air Exam Const: General: cooperative and healthy appearing Resp: Effort & Inspection: normal respiratory effort and able to speak in complete sentences Auscultation: clear to auscultation bilaterally Cardio: Rate: regular rate Rhythm: regular rhythm GI: Inspection: normal to inspection GI Palp: No No hepatosplenomegaly present Auscultation: normal bowel sounds Rectal Exam: deferred Skin: General skin exam: normal color Psych: Appearance: grossly normal Mental Status: mental status grossly normal Assessment and Plan Assessment and plan (1) Encounter for screening colonoscopy: Code(s): Z12.11 - Encounter for screening for malignant neoplasm of colon Status: Acute Assessment and Plan: The patient is deemed a good candidate for the procedure. Consent signed. Will proceed.
[2025-03-08] MEDS: SIMETHICONE ORAL SUSPENSION 20 MG/0.3 ML 30 ML BOTTLE 0.6 ML IRRIGATION (07:42)
--- NOTE | 2025-03-08 07:53 | S_PTH ---
PATIENT: Mikel Vallejo LOC: ANGÉLICA #:[id number] AGE/SX: 44/M ROOM: RE03/08/[address]: Satish Thompson MD : 1980 BED: DIS: 03/08/2025 SPEC #: [id number] RECD: 03/08/25 08:42 STATUS: CHAPITO REQ #: [id number] FARRAH: 03/08/25 07:[address]: Satish Thompson DEPT: [facility] Surgical RECD BY: Litzy Lee ENTERED: 03/08/25 08:43 SP TYPE: Surgical OTHR DR: Aurora Anand, ESPINOZA Tissues: A - Colon Polypectomy Procedures: Hematoxylin and Eosin Stain Gross and Microscopic Level 4
[2025-03-08 07:54] VITALS: BP 115/61; PULSE 70; RESP 17; O2SAT 98
[2025-03-08 08:04] VITALS: BP 105/67; PULSE 65; RESP 18; O2SAT 98
[2025-03-08 08:13] VITALS: BP 95/65; PULSE 58; RESP 24; O2SAT 98
== END 2025-03-08 08:23 | disposition home or self-care (01) ==
PROVIDERS: PCP Nurse Practitioner Family; Referring Provider Nurse Practitioner Family; Visit Provider Internal Medicine Gastroenterology
PROC: 0DJD8ZZ Inspection of Lower Intestinal Tract, Via Natural or Artificial Opening Endoscopic (ICD-10-PCS; CPT 45378; principal; 2025-03-08 07:30)
DX: Z12.11 Encounter for screening for malignant neoplasm of colon (principal); D12.8 Benign neoplasm of rectum; K57.30 Diverticulosis of large intestine without perforation or abscess without bleeding
CPT/HCPCS: 45385; 88305; J2704; J7120